=== PATIENT | female | born 1955 | race Caucasian/White ===

== ENCOUNTER 2019-09-21 23:06 | Emergency (ER) | payer OTHER ==
[2019-09-22 01:12] VITALS: BP 156/89
--- NOTE | 2019-09-22 01:20 | ED Physician Documentation ---
History of Present Illness - Stated complaint Stated Complaint: R ARM INJ, FALL - Chief complaint Chief Complaint: Trauma Ext - History obtained from History obtained from: Patient (63-year-old female visiting the area camping accidentally had a Mechanical fall From standing without hitting her head or neck pain complaining of left elbow and right shoulder pain. Denies any other complaints.) Review of Systems Constitutional: reports: Reviewed and negative Eyes: reports: Reviewed and negative Ears: reports: Reviewed and negative Nose: reports: Reviewed and negative Throat: reports: Reviewed and negative Cardiac: reports: Reviewed and negative Respiratory: reports: Reviewed and negative GI: reports: Reviewed and negative : reports: Reviewed and negative Skin: reports: Reviewed and negative Musculoskeletal: reports: Extremity pain, Joint pain Neurologic: reports: Reviewed and negative Psychiatric: reports: Reviewed and negative Endocrine: reports: Reviewed and negative Immunocompromised: reports: Reviewed and negative PD PAST MEDICAL HISTORY - Present Medications Home Medications: Ambulatory Orders Medication Instructions Recorded Confirmed HYDROcod/ACETAM 5/325 [[place] 5/325] 1 each PO Q6H PRN #7 tablet 09/22/19 - Allergies Allergies/Adverse Reactions: Allergies Allergy/AdvReac Type Severity Reaction Status Date / Time codeine Allergy Nausea Verified 09/21/19 23:34 PD ED PE NORMAL - Vitals Vital signs reviewed: Yes - General General: Alert and oriented X 3, No acute distress - HEENT HEENT: PERRL - Neck Neck: Supple, no meningeal sign - Cardiac Cardiac: RRR, No murmur - Respiratory Respiratory: Clear bilaterally - Abdomen Abdomen: Normal bowel sounds, Soft, Non tender, Non distended - Derm Derm: Warm and dry - Extremities Extremities: No deformity, Other (Diffuse tenderness about the right shoulder decreased range of motion, negative sulcus sign sensation intact over the lateral deltoid radian, median, ulnar motor and sensory exam are intact to bilateral upper extremities strength is 5 out of 5 in bilateral upper extremities there is point tenderness) - Neuro Neuro: Alert and oriented X 3 - Psych Psych: Normal mood, Normal affect Results - Vitals Vitals: Vital Signs - 24 hr 09/21/19 09/22/19 23:29 01:10 Temperature 36.7 C Heart Rate 83 93 Respiratory 18 16 Rate Blood Pressure 149/89 H 156/89 H O2 Saturation 98 97 Oxygen O2 Source Room air Procedures - Splint (location) Upper extremity left Splint applied by: Nurse Type of splint: Sugar tong Other: Patient tolerated well, No complications, Neurovascular intact PD MEDICAL DECISION MAKING - ED course Complexity details: reviewed results, re-evaluated patient, considered differential (Right shoulder injury x-ray shows no evidence of fracture dislocation. Left elbow x-rays show a radial head fracture that is nondisplaced. Patient placed in sugar tong. And sling to bilateral Upper extremities.), d/w patient, d/w family Departure - Departure Disposition: 01 Home, Self Care Clinical Impression: Fracture of radial head, left, closed Qualifiers: Encounter type: initial encounter Fracture alignment: nondisplaced Qualified C ode(s): S52.125A - Nondisplaced fracture of head of left radius, initial encounter for closed fracture Left shoulder pain Qualifiers: Chronicity: acute Qualified Code(s): M25.512 - Pain in left shoulder Condition: Stable Instructions: ED Fx Forearm Radius Ulna No Redu Requ Follow-Up: your, doctor [Other] - 09/22/19 Prescriptions: HYDROcod/ACETAM 5/325 [[place] 5/325] 1 each PO Q6H PRN #7 tablet PRN Reason: Pain Comments: Follow-up with your orthopedic surgeon and/or your primary care provider today.
[2019-09-22] MEDS ORDERED: HYDROcod/ACETAM 5/325 MG TABLET PO STA (01:35)
[2019-09-22] MEDS ORDERED: HYDROcod/ACET 5/325 Prepack 4 PO STA (03:34)
--- NOTE | 2019-09-22 09:08 | XRAY Report ---
PROCEDURE: Elbow 3 View LT INDICATIONS: Trauma TECHNIQUE: 3 views of the elbow were acquired. COMPARISON: None FINDINGS: Bones: Slight angulation noted at the dorsal margin of the radial neck possibly related to nondisplac ed fracture. No suspicious bony lesions. Suture anchors noted in the lateral humeral condyle. Soft tissues: Large joint effusion. No suspicious soft tissue calcifications. IMPRESSION: 1. Possible nondisplaced radial neck fracture. 2. Joint effusion. 3. Postsurgical changes. Reviewed by: Marly Myers MD, PhD on 09/22/2019 9:07 AM PDT Approved by: Marly Myers MD, PhD on 09/22/2019 9:07 AM PDT Station ID: [id number]
--- NOTE | 2019-09-22 09:09 | XRAY Report ---
PROCEDURE: Shoulder 3 View RT INDICATIONS: 8ft fall, pain TECHNIQUE: 3 views of the shoulder were acquired. COMPARISON: None. FINDINGS: Bones: No fractures or dislocations. No suspicious bony lesions. Visualized ribs appear intact. Soft tissues: No suspicious soft tissue calcifications. IMPRESSION: No fracture. No acute osseous lesion. If there is continued clinical concern for pathology, then repe at plain film radiographs (7-10 days) or advanced imaging (CT, MR, bone scan) should be considered fo r further evaluation. Reviewed by: Marly Myers MD, PhD on 09/22/2019 9:07 AM PDT Approved by: Marly Myers MD, PhD on 09/22/2019 9:07 AM PDT Station ID: [id number]
== END 2019-09-22 04:06 | disposition home or self-care (01) ==
LOC: ED 23:06
DX: S52.125A Nondisplaced fracture of head of left radius, initial encounter for closed fracture (principal); M25.511 Pain in right shoulder; M25.512 Pain in left shoulder; W17.89XA Other fall from one level to another, initial encounter; Y93.39 Activity, other involving climbing, rappelling and jumping off; Y92.833 Campsite as the place of occurrence of the external cause
CPT/HCPCS: 29105; 73030; 73080; 99283; A9270